=== PATIENT | female | born 1990 | race Caucasian/White ===

== ENCOUNTER 2019-01-19 12:51 | Emergency (ER) | payer OTHER ==
[2019-01-19 13:04] VITALS: BP 125/77
[2019-01-19] MEDS ORDERED: CLINDAMYCIN 150 MG CAPSULE PO STA (13:15)
--- NOTE | 2019-01-19 13:18 | ED Physician Documentation ---
History of Present Illness - Stated complaint Stated Complaint: TAILBONE WOUND - Chief complaint Chief Complaint: Wound - History obtained from History obtained from: Patient - History of Present Illness Timing: How many days ago (several) Pain level max: 8 Pain level now: 8 - Additonal information Additional information: 29-year-old female presents to the emergency department after having drainage of a pilonidal cyst/abscess done 2 days ago. She states that she was told to change the dressing daily and repacked the wound. She states that this is becoming more painful. She is not on antibiotics. She is taking Tylenol for pain. No fevers. Worse with palpation. Nothing makes it better Review of Systems Constitutional: denies: Fever, Chills : denies: Now EGA Skin: denies: Rash Musculoskeletal: denies: Neck pain, Back pain PD PAST MEDICAL HISTORY - Past Medical History Past Medical History: Yes Musculoskeletal: Scoliosis - Past Surgical History Past Surgical History: No - Present Medications Home Medications: Ambulatory Orders Medication Instructions Recorded Confirmed Biotin 5,000 mcg DAILY 01/05/14 01/05/14 Implanon 01/05/14 01/05/14 Naproxen [Naprosyn] PRN 01/05/14 01/05/14 Polymyxin B Sulf/Trimethoprim 2 drops RIGHTEYE Q3H 7 Days drops 01/05/14 [Polytrim Eye Drops] Clindamycin HCl [Clindamycin 300MG 300 mg PO Q6H #28 capsule 01/19/19 CAP] Hydrocodone/Acetaminophen 1 - 2 each PO Q6H PRN #14 tablet 01/19/19 [Hydrocodon-Acetaminophen 5-325] - Allergies Allergies/Adverse Reactions: Allergies Allergy/AdvReac Type Severity Reaction Status Date / Time No Known Drug Allergies Allergy Verified 01/05/14 19:59 - Social History Does the pt smoke?: No Smoking Status: Never smoker Does the pt drink ETOH?: No Does the pt have substance abuse?: No - Immunizations Immunizations are current?: Yes PD ED PE NORMAL - Vitals Vital signs reviewed: Yes - General General: Alert and oriented X 3, No acute distress - HEENT HEENT: Moist mucous membranes - Rectal Rectal: Other (Indurated area to the left gluteal fold. Packing in place. No drainage. Mild erythema) - Derm Derm: Warm and dry - Neuro Neuro: Alert and oriented X 3 - Psych Psych: Normal mood, Normal affect Results - Vitals Vitals: Vital Signs - 24 hr 01/19/19 13:01 Temperature 36.2 C L Heart Rate 58 L Respiratory 18 Rate Blood Pressure 125/77 O2 Saturation 100 Oxygen O2 Source Room air PD MEDICAL DECISION MAKING - ED course Complexity details: considered differential, d/w patient ED course: Patient with a healing, indurated pilonidal cyst/abscess. Packing will be left in place. Will add antibiotics and pain medication to her regimen. Informed her that if the packing falls out she does not need to repack it. Will also utilize warm water rinses in the shower several times daily to encourage draina ge. She may need to follow-up with a surgeon after the infection to remove the cyst. Patient counseled regarding signs and symptoms for which I believe and urgent re-evaluation would be necessary. Patient with good understanding of and agreement to plan and is comfortable going home at this time This document was made in part using voice recognition software. While efforts are made to proofread this document, sound alike and grammatical errors may occur. Departure - Departure Disposition: 01 Home, Self Care Clinical Impression: Pilonidal cyst Condition: Good Instructions: ED Cyst Pilonidal Infected IandD Follow-Up: your,doctor in 3 days for wound check [Other] Prescriptions: Clindamycin HCl [Clindamycin 300MG CAP] 300 mg PO Q6H #28 capsule Hydrocodone/Acetaminophen [Hydrocodon-Acetaminophen 5-325] 1 - 2 each PO Q6H PRN #14 tablet PRN Reason: pain Comments: Return if you worsen. Follow-up with your doctor in 3 days for a wound check. You do not need to change the packing daily. It does not need to be tightly packed. You should run warm water over the area 3-4 times a day, you can do this in the shower as this will help it drain. Take all antibiotics until gone. If the packing falls out, it does not need to be repacked. Do not drink alcohol or drive while on narcotic pain medicine. Note that many narcotic pain relievers also contain tylenol/acetaminophen. Please ensure that your total dose of acetaminophen from all sources does not exceed 3 grams (3000mg) per day. You may constipated on this medication, take a stool softener such as "Colace" twice a day while you are on it. Also recommend a [id number] laxative such as senna or MiraLAX any day that you do not have a bowel movement. If you received narcotic pain medication in the emergency department, do not drive or operate machinery for the next 24 hours. Discharge Date/Time: 01/19/19 13:30
== END 2019-01-19 13:30 | disposition home or self-care (01) ==
LOC: ED 12:51
DX: L05.91 Pilonidal cyst without abscess (principal); Z48.00 Encounter for change or removal of nonsurgical wound dressing
CPT/HCPCS: 99282; 99284; A9270

== ENCOUNTER 2020-02-28 15:07 | Outpatient (CLI) | payer OTHER | END 2020-02-28 15:08 | disposition home or self-care (01) | LOC: LAB 15:07 | PROVIDERS: ATTEND Surgery | DX: Z01.812 Encounter for preprocedural laboratory examination (principal); Z20.828 Contact with and (suspected) exposure to other viral communicable diseases; L05.91 Pilonidal cyst without abscess ==

== ENCOUNTER 2020-03-03 07:12 | Day surgery (SDC) | payer OTHER ==
[2020-03-03] MEDS ORDERED: BUPIVACAINE 0.25% PF 30 ML VIAL ONE (07:15)
[2020-03-03] MEDS ORDERED: LIDOCAINE 1% 50 ML MDV ONE (07:15)
[2020-03-03] MEDS ORDERED: metroNIDAZOLE 500 MG/100 ML 500 MG/100 ML BAG ONE (07:22)
[2020-03-03] MEDS ORDERED: CEFAZOLIN SODIUM IN 0.9 % NACL 2 GM/100 ML BAG IV ONE (07:23)
[2020-03-03] MEDS ORDERED: LACTATED RINGERS 1,000 ML IV ONE (07:34)
[2020-03-03 07:39] LABS: HCG UR QUAL NEGATIVE
[2020-03-03] MEDS ORDERED: ePHEDrine 50 MG/ML VIAL IVP PRN (08:12)
[2020-03-03] MEDS ORDERED: HYDROmorphone 0.5 MG/0.5 ML SYRINGE IVP PRN (08:12)
[2020-03-03] MEDS ORDERED: METOCLOPRAMIDE 10 MG/2 ML VIAL IVP PRN (08:12)
[2020-03-03] MEDS ORDERED: ATROPINE ABBOJECT 1 MG/10 ML SYRINGE IVP PRN (08:12)
[2020-03-03] MEDS ORDERED: NALOXONE 0.4 MG/ML VIAL IVP PRN (08:12)
[2020-03-03] MEDS ORDERED: fentaNYL 100 MCG/2 ML VIAL IVP PRN (08:12)
[2020-03-03] MEDS ORDERED: MORPHINE 2 MG/ML CARPUJECT IVP PRN (08:12)
[2020-03-03] MEDS ORDERED: ONDANSETRON 4 MG/2 ML VIAL IVP PRN (08:12)
--- NOTE | 2020-03-03 08:12 | ANESTHESIA ---
Pre-Anesthesia VS, & Labs - Diagnosis pilonidal cyst - Procedure Pilonidal Cystectomy Vital Signs: Temp Pulse Resp BP Pulse Ox 36.7 C 56 L 12 127/85 H 100 03/03/20 07:35 03/03/20 07:35 03/03/20 07:35 03/03/20 07:35 03/03/20 07:35 Height: 5 ft 9 in Weight (kg): 75.7 kg Body Mass Index: 24.6 BMI Classification: Healthy weight - NPO >8 hours - Is Patient ?: No - Lab Results Lab results reviewed: Yes Home Medications and Allergies Home Medications: Ambulatory Orders Acetaminophen [Tylenol] 650 mg PO Q6H PRN 02/21/20 Glucosamine HCl 1,500 mg PO DAILY 02/21/20 Ibuprofen [Motrin] 600 mg PO Q6H PRN 02/21/20 Multivitamin 1 each PO DAILY 02/21/20 Naproxen Sodium [Aleve] 220 mg PO DAILY PRN 02/21/20 [place]-3/Dha/Epa/Fish Oil [Fish Oil 1,000 mg Softgel] 1 each PO DAILY 02/21/20 buPROPion [Wellbutrin Xl] 150 mg PO DAILY 02/21/20 Acetaminophen [Tylenol] 650 mg PO Q6H PRN 02/21/20 Glucosamine HCl 1,500 mg PO DAILY 02/21/20 Ibuprofen [Motrin] 600 mg PO Q6H PRN 02/21/20 Multivitamin 1 each PO DAILY 02/21/20 Naproxen Sodium [Aleve] 220 mg PO DAILY PRN 02/21/20 [place]-3/Dha/Epa/Fish Oil [Fish Oil 1,000 mg Softgel] 1 each PO DAILY 02/21/20 buPROPion [Wellbutrin Xl] 150 mg PO DAILY 02/21/20 Allergies/Adverse Reactions: Allergies Allergy/AdvReac Type Severity Reaction Status Date / Time No Known Drug Allergies Allergy Verified 01/05/14 19:59 Anes History & Medical History - Anesthetic History Anesthesia Complications: reports: No previous complications Family history of Anesthesia Complications: Denies Family history of Malignant Hyperthermia: Denies - Medical History Cardiovascular: reports: None Pulmonary: reports: None Gastrointestinal: reports: None Urinary: reports: None Musculoskeletal: reports: Scoliosis, Chronic back pain, Other Endocrine/Autoimmune: reports: None Skin: reports: Other Smoking Status: Never smoker - Surgical History General:  Gynecologic: Tubal ligation Exam General: Alert, Oriented x3, Cooperative, No acute distress Dental: WNL Mouth Openin Fingerbreadth Neck Mobility: Normal Mallampati classification: II Respiratory: Lungs clear, Normal breath sounds, No respiratory distress, No accessory muscle use Cardiovascular: Regular rate, Normal S1, Normal S2, No murmurs Plan Anesthesia Type: MAC Consent for Procedure(s) Verified and Reviewed: Yes Code Status: Attempt Resuscitation ASA classification: 1-Healthy patient Is this case an emergency?: No
[2020-03-03] MEDS ORDERED: LACTATED RINGERS 1,000 ML IV SCH (09:00)
[2020-03-03] MEDS ORDERED: oxyCODONE 5 MG TABLET PO PRN (09:30)
[2020-03-03] MEDS ORDERED: LACTATED RINGERS 300 ML IV ONE (09:31)
--- NOTE | 2020-03-03 09:34 | OPERATIVE REPORT ---
Operative Report - General Procedure Date: 03/03/20 Pre-Op Diagnosis: pilonidal cyst Procedure Performed: quincy procedure/ excision Post Op Diagnosis: pilnidal cyst - Procedure Note Anesthesia Technique: Local, MAC Estimated Blood Loss (mL): 15 Drain/Tube Type: Other (none) Complications: none
--- NOTE | 2020-03-03 09:56 | ANESTHESIA POST OP EVALUATION ---
Anesthesia Post Eval - Post Anesthesia Eval Vitals: Last Vital Signs Temp 37.3 C 03/03/20 09:43 Pulse 65 03/03/20 09:43 Resp 15 03/03/20 09:43 BP 113/67 03/03/20 09:43 Pulse Ox 100 03/03/20 09:43 CV Function Including HR & BP: positive: Stable Pain Control: positive: Satisfactory Nausea & Vomiting: positive: Negative Mental Status: positive: Baseline Respiratory Status: Airway Patent Hydration Status: Satisfactory Anesthesia Complications: positive: None
[2020-03-03 09:58] VITALS: BP 105/64
--- NOTE | 2020-03-03 11:18 | OPERATIVE REPORT ---
DATE OF SERVICE: 03/03/2020 Physician: Dickson Zepeda MD PREOPERATIVE DIAGNOSIS: Pilonidal cyst. POSTOPERATIVE DIAGNOSIS: Pilonidal cyst. PROCEDURE PERFORMED: Pilonidal cyst excision, Sisi procedure, extensive excision. SURGEON: Dickson Zepeda MD SCIENCE EDUCATION PROFESSOR: None. ANESTHESIA: Monitored anesthesia care, IV sedation, local anesthesia. COMPLICATIONS: None. SPECIMEN: Clinically benign, not sent for pathology. ESTIMATED BLOOD LOSS: Less than 15 mL DRAINS: None. INDICATIONS FOR PROCEDURE: The patient is a 30-year-old with pilonidal cyst inflammation on and off since age 17. She has had an incision and drainage twice. She presents for surgery. Risks discusse d, alternatives discussed. All questions answered and consent obtained. FINDINGS: She had 4 small sinus tracts over an area of approximately 3 cm. She had a prior left lat eral I and D, and incision. DETAILS OF PROCEDURE: The patient was properly identified, brought to the operating room and placed in a prone position. She was carefully padded. Monitored anesthesia care was given. She was preppe d and draped in a sterile fashion and given preoperative antibiotics. The 4 small sinus tracts were excised with a minimal amount of surrounding skin, using an 11-blade scalpel. A 4 cm left lateral in cision was then made sharply. Dissection proceeded with cutting current or sharp dissection. A bri nidal cyst consisting of ingrown hairs, granulation tissue and scar tissue was excised back to normal healthy tissue. Hemostasis was ensured. Subcutaneous tissue was mobilized. Deep subcutaneous tiss ue was reapproximated in the midline with interrupted 3-0 Vicryl suture. Buried interrupted subderma l 3-0 Vicryl sutures were then placed. Skin was closed loosely with vertical mattress 3-0 nylon sutu res. Dressing was applied. She tolerated the procedure well. TD: 03/03/2020 09:49
== END 2020-03-03 07:13 | disposition home or self-care (01) ==
LOC: SDS 07:12
PROVIDERS: ATTEND Surgery
DX: L05.91 Pilonidal cyst without abscess (principal)
CPT/HCPCS: 11771; 81025; J0690; J7120

== ENCOUNTER 2020-12-09 11:32 | Outpatient (CLI) | payer OTHER ==
[2020-12-09 17:41] LABS: BASOPHILS % (AUTO) 0.3 %; EOSINOPHILS % (AUTO) 0.3 %; HCT - HEMATOCRIT 44.1 % (37.0-47.0); HGB - HEMOGLOBIN 14.2 g/dL (12.0-16.0); LYMPHOCYTES # (AUTO) 0.7 10^3/uL (1.5-3.5); LYMPHOCYTES % (AUTO) 8.5 %; MEAN CORPUSCULAR HEMOGLOBIN 29.5 pg (27.0-31.0); MEAN CORPUSCULAR HGB CONC 32.2 g/dL (32.0-36.0); MEAN CORPUSCULAR VOLUME 91.7 fL (81.0-99.0); MEAN PLATELET VOLUME 10.8 fL (7.9-10.8); MONOCYTES # (AUTO) 0.7 10^3/uL (0.0-1.0); MONOCYTES % (AUTO) 7.6 %; NEUTROPHILS # (AUTO) 7.1 10^3/uL (1.5-6.6); PLT - PLATELET COUNT 163 10^3/uL (130-450); RED BLOOD COUNT 4.81 10^6/uL (4.20-5.40); RED CELL DISTRIBUTION WIDTH 12.5 % (12.0-15.0); WHITE BLOOD COUNT 8.6 x10^3/uL (4.8-10.8)
[2020-12-09 17:52] LABS: ALBUMIN 4.5 g/dL (3.2-5.5); ALBUMIN/GLOBULIN RATIO 1.5 (1.0-2.2); BILIRUBIN,TOTAL 0.6 mg/dL (0.2-1.0); CREATININE 0.9 mg/dL (0.4-1.0); TOTAL PROTEIN 7.6 g/dL (6.7-8.2)
[2020-12-09 18:01] LABS: BILIRUBIN,URINE NEGATIVE (NEGATIVE); GLUCOSE, URINE (UA) NEGATIVE (NEGATIVE); KETONES,URINE (UA) 15 mg/dL (NEGATIVE); LEUKOCYTE ESTERASE, URINE NEGATIVE (NEGATIVE); NITRITE,URINE NEGATIVE (NEGATIVE); OCCULT BLOOD,URINE NEGATIVE (NEGATIVE); PROTEIN,URINE NEGATIVE (NEGATIVE); UROBILINOGEN,URINE 0.2 (NORMAL) E.U./dL (NORMAL)
[2020-12-09 18:03] LABS: CLARITY,URINE CLEAR (CLEAR)
[2020-12-09 18:15] LABS: BACTERIA,URINE Moderate /HPF (None Seen); RBC,URINE None Seen /HPF (0-5); SQUAMOUS EPITHELIAL CELL,UR MANY Squamous (<= Few); WBC,URINE 0-3 /HPF (0-5)
[2020-12-09 19:50] LABS: POTASSIUM 3.7 mmol/L (3.5-5.0)
== END 2020-12-09 23:59 | disposition home or self-care (01) ==
LOC: LAB.N 11:32
PROVIDERS: ATTEND Nurse Practitioner
DX: R19.7 Diarrhea, unspecified (principal); R11.2 Nausea with vomiting, unspecified; Z20.822 Contact with and (suspected) exposure to COVID-19
CPT/HCPCS: 36415; 80053; 81001; 81599; 85025; 87086; 87177; 87209; 87329; 87493

== ENCOUNTER 2020-12-11 11:45 | Outpatient (CLI) | payer OTHER | END 2020-12-11 23:59 | disposition home or self-care (01) | LOC: LAB.N 11:45 | PROVIDERS: ATTEND Nurse Practitioner | DX: R19.7 Diarrhea, unspecified (principal) | CPT/HCPCS: 81599; 87045; 87046; 87177; 87209; 87329; 87427; 87449; 87493 ==

== ENCOUNTER 2021-04-05 13:11 | Outpatient (CLI) | payer OTHER ==
[2021-04-05 21:49] VITALS: BP 99/61
--- NOTE | 2021-04-05 21:49 | SLEEP CARE CONSULTATION ---
Information from patient questionnaire entered by Lenny Wen MA. I have reviewed and concur with the information entered by Lenny Wen MA. This document represents the service I personally performed and the decisions made by me, Iris Sifuentes MD, [facility]. History of Present Illness Service Date and Time: 04/05/2021 1311 Reason for Visit: New patient Chief Complaint: reports: Insomnia, Unrefreshed sleep, Excessive daytime sleepiness, Fatigue, Frequent awakenings at night Date of Onset: 05/2020 Usual bedtime: 930 - 1000 pm Time it takes to fall asleep: 30 - 45 minutes Observed to quit breathing while asleep: No Sleeps alone due to snoring: No Number of times waking at night: 2 - 5 Reasons for waking at night: reports: Bathroom, Other (unknown reason) Toss, Turn, or Twitch while sleeping: Yes Recalls having dreams: Yes Usually gets out of bed at: 0530 - 0730 Feels refreshed in the morning: No Morning headache: No Sleepy or fatigued during the day: Yes Ever fallen asleep while driving: Yes Takes day naps: No Dreams during day naps: No Additional HPI information: I have the pleasure of seeing Ms. Mcguire today regarding the possibility of her having obstructive sleep apnea. As you know, she is a 31 year old lady who complains of insomnia, unrefreshed sleep, frequent awakenings, persistent fatigue, and excessive daytime sleepiness. The insomnia started in May when she had a mental breakdown. The patient tells me that she normally goes to bed around 9:30 - 10 pm, and it takes her approximately 30 - 45 minutes to fall asleep. She has not been told that she snores loudly or irregularly at night. She has never been observed to stop breathing in her sleep. Her sleeps in the same bed. She can recall waking up on the average of 2 - 5 times during the night. Most of the time she wakes up because of having to use the bathroom, and for no apparent reason. She has never awakened because of her own snoring, choking, or having to gasp for air. There is a lot of tossing and turning in her sleep. She has somniloquy (sleep talking) but not somnambulism (sleep walking). Generally, she can recall having dreams. In the morning she usually gets up out of the bed around 5:30 7:30 a.m. not feeling refreshed nor rested. She usually does not have a morning headache. During the day she complains of feeling sleepy and fatigued. Her score on [place] Sleepiness Scale is 13 out of 24. She has fallen asleep while driving and has gone out of the luz elena. She usually does not take naps during the day. She reports symptoms of restless leg syndrome. She complains of having impaired concentration during the day. - Parasomnia Symptoms Ever been unable to move upon waking from sleep: No Walks in sleep: No Talks in sleep: Yes Ever acted out dreams in sleep: Yes Ever felt weak in the knees when startled or emotional: Yes Bothered by creepy, crawly, restless sensations in legs: Yes Problems with memory or concentration: Yes Subjective Initial [place] Sleepiness Scale score: 13 (in 2020) Past Medical History Past Medical History: reports: Anxiety, Depression Social History The patient's occupation is a AM. Patient is and lives in [place]. Have you smoked in the past 12 months: No Alcohol use: No Caffeine use: Yes Caffeine amount and frequency: 2 cups daily Family History Family history of sleep disordered breathing: Yes Family Hx Sleep Apnea: Father: Snoring, Grandparent: Snoring, Other: Sleep apnea - Treated (unknown if treated), Sleep apnea - Untreated (unknow if treated) Allergies and Home Medications Known drug allergies: No Drug allergies reviewed: Yes Home medication list reviewed: Yes Review of Systems Weight gain over past 5 years: 25 Weight loss over past 5 years: 25 Cardiovascular: denies: high blood pressure, palpitations, chest pain, irregular heart rate or pulse, leg or foot swelling, have to sleep sitting up, other Respiratory: denies: shortness of breath, wheeze, sputum production, chronic cough, other Gastrointestinal: denies: heartburn, difficulty swallowing, nausea, vomitting, diarrhea, abdominal pain, other Urinary: denies: incontinence, frequency, urgency, impotence, other Neurological: denies: headaches, seizure, head trauma, disorientation, speech dysfunction, gait or balance problems, fainting or unconsciousness, other Psychiatric: reports: anxiety, depression Ear/Nose/Throat: denies: nasal congestion, sinus problems, nose bleeds, dry mouth/throat, hoarseness, injury to nose, tonsillectomy, wisdom teeth removed, other Endocrine: reports: sluggishness, too hot or cold (see notes on written paper charting. ) Musculoskeletal: denies: joint pain, neck pain, back pain, joint swelling, muscle pain or cramping, mobility problems, other Immunologic: denies: sneezing, rash, itching, allergies to food or environment, other Physical Exam Vital signs obtained and entered by: Kellen Wen CMA AADAVID Blood Pressure: 99/61 (left) Cuff size: wrist Heart Rate: 59 O2 Saturation: 98 (with mask) Height: 5 ft 9 in Weight: 155 lb (with boot ) Body Mass Index: 22.8 BMI Classification: Healthy weight Impression and Plan IMPRESSION: 1. Insomnia, most likely due to underlying psychiatric disorder. However, on obvious factor is excessive time spent in bed of about 9 hours a night (her average bedtime is 9:30 pm and average wake up time is 6:30 am). An in-laboratory polysomnography will be ordered to evaluate her complaint of frequent awakenings. Plan: 1. Schedule an in-laboratory polysomnography. 2. Avoid long distance driving or when feeling sleepy. 3. Avoid alcohol, sedative and muscle relaxant around bedtime. 4. Maintain a regular wake up time and spend no more than 8 hours in bed at night. Avoid naps. 5. Return for follow up after the sleep study. Follow up with Sleep Care in: 1-2 months Visit Type: In Office Time Spent with Patient (minutes): 15 Provider Statement: I spent 100% of the Face to Face Visit with the patient with greater than 50% spent counseling the patient and coordination of care.
== END 2021-04-05 13:12 | disposition home or self-care (01) ==
LOC: SC 13:11
PROVIDERS: ATTEND Internal Medicine Pulmonary Disease
DX: G47.00 Insomnia, unspecified (principal)
CPT/HCPCS: 99202; 99212

== ENCOUNTER 2021-04-13 11:17 | Outpatient (CLI) | payer OTHER ==
--- NOTE | 2021-04-13 14:42 | XRAY Report ---
PROCEDURE: Shoulder 2 View LT INDICATIONS: STRAIN OF MUSCLE, TENDON, AND FASCIA OF L SHOULDER TECHNIQUE: 2 views of the shoulder were acquired. COMPARISON: None. FINDINGS: Bones: No fractures or dislocations. No suspicious bony lesions. Visualized ribs appear intact. Lateral downsloping appearance of the acromion incidentally noted. Glenohumeral and AC joint grossly preserved Soft tissues: No suspicious soft tissue calcifications. IMPRESSION: Lateral downsloping appearance of the acromion otherwise no acute findings. If the patient's pain or other symptoms persist, consider further evaluation with MRI. Reviewed by: Pietro Diaz MD on 04/13/2021 2:41 PM PST Approved by: Pietro Diaz MD on 04/13/2021 2:41 PM PST Station ID: [id number]
== END 2021-04-13 23:59 | disposition home or self-care (01) ==
LOC: DI.N 11:17
PROVIDERS: ATTEND Nurse Practitioner
DX: S46.912A Strain of unspecified muscle, fascia and tendon at shoulder and upper arm level, left arm, initial encounter (principal)

== ENCOUNTER 2021-06-18 21:22 | Outpatient (CLI) | payer OTHER | END 2021-06-18 21:23 | disposition home or self-care (01) | LOC: SC 21:22 | PROVIDERS: ATTEND Nurse Practitioner Family | DX: G47.61 Periodic limb movement disorder (principal) | CPT/HCPCS: 95810 ==

== ENCOUNTER 2021-07-09 15:05 | Outpatient (CLI) | payer OTHER ==
[2021-07-09 15:32] VITALS: BP 133/91
--- NOTE | 2021-07-09 15:32 | SLEEP CARE CONSULTATION ---
Information from patient questionnaire entered by Lenny Wen MA. I have reviewed and concur with the information entered by Lenny Wen MA. This document represents the service I personally performed and the decisions made by Quan ward Caren J, ARNP. History of Present Illness Service Date and Time: 07/09/2021 1505 Initial [place] Sleepiness Scale score: 13 (in 2020) Current [place] Sleepiness Scale score: 17 (2021) Additional HPI information: ROBERTA PULLIAM returns for follow up and results of the recently performed polysomnography. The patient was informed of the following findings: No significant sleep disordered breathing with an average AHI of 0.3 and keke oxygen saturation of 92%. There was no audible snore and mild periodic leg movements of sleep noted. I explained the pathophysiology behind obstructive sleep apnea. Patient does not have sleep apnea and was advised how weight gain could increase the risk of developing sleep apnea in the future. Patient does not drink alcohol. Patient was cautioned about risks of drowsy driving until sleepiness symptoms resolve. Sleep Study - Results Type of Sleep Study: Polysomnography (FU POLY) Polysomnography/Home Sleep Study results: IMPRESSION: The quality of the study is good. The patient had normal sleep efficiency. The sleep architecture was relatively normal considering the first-night effect. Respiratory monitoring showed no significant sleep disordered breathing (AHI = 0.3) or hypoxia (keke oxygen saturation of 92%). The rare respiratory events occurred independently of sleep stage and body position (supine AHI = 0.4; non-supine = 0.23). No audible snore. There was mild periodic leg movement of sleep not associated with sleep fragmentation. Cardiac rhythm was normal sinus rhythm without significant arrhythmia. No abnormal behavior (parasomnia) observed during the night. Allergies and Home Medications Known drug allergies: No Drug allergies reviewed: Yes Home medication list reviewed: Yes (LEVOTHYROXINE 0.25MG QD - infertility) Allergy and home medication list: Allergies No Known Drug Allergies Allergy (Verified 01/05/14 19:59) Review of Systems Review of systems same as previous: Yes (no changes) Physical Exam Vital signs obtained and entered by: DERICK Ashraf Blood Pressure: 133/91 (LEFT, PULSE 60, RESP 18,) Cuff size: wrist Heart Rate: 61 O2 Saturation: 97 (PAPER MASK) Height: 5 ft 9 in Weight: 165 lb Body Mass Index: 24.3 BMI Classification: Healthy weight Impression and Plan 1. Periodic limb movement, mild, that did not fragment patients sleep. Periodic limb movement of sleep (PLMS) is characterized by episodes of repetitive limb movements that occur during sleep and usually involve the lower limbs. The etiology is unknown but can be associated with restless leg syndrome (RLS), low serum ferritin level below 50 to 75mcg / L, neuropathy, spinal cord diseases, kidney disease, rheumatological disorders, narcolepsy, obstructive sleep apnea, and REM sleep behavior disorder. Caffeine can also aggravate PLMS and should be avoided. Sleep hygiene methods can also improve sleep as well as lifestyle changes such as regular exercise. Patient was advised that no treatment is needed at this time. If symptoms increase, then further evaluation is indicated. * Maintain healthy weight * Avoid alcohol consumption near bedtime * The patient is cautioned about driving until sleepiness is completely resolved. * Return as needed for follow up. Counseling Topics: Weight control Visit Type: In Office Time Spent with Patient (minutes): 13 Provider Statement: I spent 100% of the Face to Face Visit with the patient with greater than 50% spent counseling the patient and coordination of care.
== END 2021-07-09 15:06 | disposition home or self-care (01) ==
LOC: SC 15:05
PROVIDERS: ATTEND Nurse Practitioner Family
DX: G47.61 Periodic limb movement disorder (principal)
CPT/HCPCS: 99212

== ENCOUNTER 2022-01-10 08:00 | Outpatient (CLI) | payer OTHER ==
--- NOTE | 2022-01-10 17:35 | XRAY Report ---
PROCEDURE: Shoulder 2 View RT INDICATIONS: RIGHT SHOULDER PX TECHNIQUE: Views of the location were acquired. COMPARISON: None. FINDINGS: Bones: No fractures or dislocations. No suspicious bony lesions. Soft tissues: No suspicious soft tissue calcifications. IMPRESSION: Normal right shoulder Reviewed by: Jani Giles on 01/10/2022 5:33 PM PDT Approved by: Jani Giles on 01/10/2022 5:33 PM PDT Station ID: [id number]
== END 2022-01-10 23:59 | disposition home or self-care (01) ==
LOC: DI.WOS 08:00
PROVIDERS: ATTEND Physician Assistant Surgical
DX: M25.511 Pain in right shoulder (principal)